=== PATIENT | female | born 1995 | race Caucasian/White ===

== ENCOUNTER → 2019-06-04 11:58 | Outpatient (BNVA) | payer SELFPAY | PROVIDERS: Visit Provider Nurse Practitioner | DX: N39.0 Urinary tract infection, site not specified (principal); R30.9 Painful micturition, unspecified | CPT/HCPCS: 81003 ==

== ENCOUNTER → 2021-11-22 11:19 | Outpatient (BNVA) | payer OTHER, SELFPAY | PROVIDERS: PCP Family Medicine; Visit Provider Emergency Medicine | DX: M79.644 Pain in right finger(s) (principal); M79.89 Other specified soft tissue disorders | CPT/HCPCS: 73140 ==

== ENCOUNTER → 2022-02-08 14:25 | Outpatient (BNVA) | payer OTHER, SELFPAY | PROVIDERS: PCP Family Medicine; Visit Provider Emergency Medicine | DX: R39.9 Unspecified symptoms and signs involving the genitourinary system (principal); R30.0 Dysuria; N39.0 Urinary tract infection, site not specified; R31.9 Hematuria, unspecified | CPT/HCPCS: 81000; 87086 ==

== ENCOUNTER → 2022-03-22 10:25 | Outpatient (BNVA) | payer OTHER, SELFPAY | PROVIDERS: PCP Family Medicine; Visit Provider Obstetrics & Gynecology | DX: Z36.87 Encounter for antenatal screening for uncertain dates (principal) | CPT/HCPCS: 76817 ==

== ENCOUNTER → 2022-03-27 10:21 | Outpatient (BNVA) | payer OTHER, SELFPAY | PROVIDERS: PCP Family Medicine; Visit Provider Obstetrics & Gynecology | DX: Z34.90 Encounter for supervision of normal pregnancy, unspecified, unspecified trimester (principal) | CPT/HCPCS: 80307; 84315; 85025; 86762; 86803; 86850; 86900; 87086; 87340 ==

== ENCOUNTER → 2022-04-09 10:10 | Outpatient (BNVA) | payer OTHER, SELFPAY | PROVIDERS: PCP Family Medicine; Visit Provider Obstetrics & Gynecology | DX: O09.91 Supervision of high risk pregnancy, unspecified, first trimester; Z3A.00 Weeks of gestation of pregnancy not specified; Z87.59 Personal history of other complications of pregnancy, childbirth and the puerperium | CPT/HCPCS: 84315; 86592; 87491; 87591 ==

== ENCOUNTER → 2022-06-08 10:30 | Outpatient (BNVA) | payer OTHER, SELFPAY | PROVIDERS: PCP Family Medicine; Visit Provider Obstetrics & Gynecology | DX: Z36.89 Encounter for other specified antenatal screening (principal) | CPT/HCPCS: 76805 ==

== ENCOUNTER → 2022-07-10 11:25 | Outpatient (BNVA) | payer OTHER, SELFPAY | PROVIDERS: PCP Family Medicine; Visit Provider Nurse Practitioner Women's Health | DX: O09.899 Supervision of other high risk pregnancies, unspecified trimester (principal); Z3A.00 Weeks of gestation of pregnancy not specified | CPT/HCPCS: 82950; 84315 ==

== ENCOUNTER → 2022-07-31 12:00 | Outpatient (BNVA) | payer OTHER, SELFPAY | PROVIDERS: PCP Family Medicine; Visit Provider Nurse Practitioner Women's Health | DX: O09.899 Supervision of other high risk pregnancies, unspecified trimester (principal); O36.8390 Maternal care for abnormalities of the fetal heart rate or rhythm, unspecified trimester, not applicable or unspecified; Z3A.00 Weeks of gestation of pregnancy not specified | CPT/HCPCS: 84315; 84443; 85025 ==

== ENCOUNTER → 2022-09-18 07:51 | Outpatient (BNVA) | payer OTHER, SELFPAY | PROVIDERS: PCP Family Medicine; Visit Provider Obstetrics & Gynecology | DX: O09.899 Supervision of other high risk pregnancies, unspecified trimester (principal); Z3A.00 Weeks of gestation of pregnancy not specified | CPT/HCPCS: 85025 ==

== ENCOUNTER → 2022-09-24 09:29 | Outpatient (BNVA) | payer OTHER, SELFPAY | PROVIDERS: PCP Family Medicine; Visit Provider Obstetrics & Gynecology | DX: O09.893 Supervision of other high risk pregnancies, third trimester (principal); Z3A.37 37 weeks gestation of pregnancy; Z87.59 Personal history of other complications of pregnancy, childbirth and the puerperium | CPT/HCPCS: 76816; 84315; 87081 ==

== ENCOUNTER → 2022-10-01 10:56 | Outpatient (BNVA) | payer OTHER, SELFPAY | PROVIDERS: PCP Family Medicine; Visit Provider Obstetrics & Gynecology | DX: O09.899 Supervision of other high risk pregnancies, unspecified trimester (principal); Z3A.00 Weeks of gestation of pregnancy not specified | CPT/HCPCS: 81000; 87086 ==

== ENCOUNTER 2022-10-18 07:47 | Inpatient (IN) | payer OTHER, SELFPAY ==
[2022-10-18] VITALS (54 sets, daily range): BP systolic 87–132; BP diastolic 51–83; PULSE 54–108; RESP 14–16; TEMP 35.8–36.7; O2SAT 99–100; BMI 33.3
[2022-10-18] MEDS: lactated ringers 1,000 ML 999 ML IV ×3 (08:43→13:38)
[2022-10-18 09:09] LABS: Basophils % 0.3 %; Eosinophils % 0.4 %; Hematocrit 33.4 % (37.0-47.0); Hemoglobin 10.7 g/dL (11.5-15.3); Lymphocytes # 2.1 10^3/uL (0.8-4.8); Lymphocytes % 21.8 %; Mean Corpuscular Hemoglobin 30.6 pg (28.0-34.0); Mean Corpuscular Volume 95.4 fl (81-99); Mean Platelet Volume 12.2 fL (7.4-10.4); Monocytes # 0.8 10^3/uL (0.2-0.9); Monocytes % 8.9 %; Neutrophils # 6.38 10^3/uL (1.8-7.7); Neutrophils % 67.6 %; Nucleated Red Blood Cells % 0 %; Platelet Count 209 10^3/cmm (130-400); Red Cell Distribution Width 13.5 % (12.1-15.1); White Blood Count 9.4 10^3/uL (4.0-10.0)
--- NOTE | 2022-10-18 10:18 | ANES.PREANE2 ---
Pre-Anesthetic Assessment Height/Weight: Height 1.7 m Weight 96.615 kg Temp Pulse Resp BP Pulse Ox O2 Del Method 96.4 F L 95 16 107/67 100 Room Air 10/18/22 07:36 10/18/22 10:15 10/18/22 08:12 10/18/22 10:15 10/18/22 10:10 10/18/22 08:07 Epidural Familial anesthetic complications: None Was Beta Justin taken within 24 hours: N/A Was Clonidine taken within 24 hours: N/A Last intake: Food Social No alcohol and No tobacco Exam alert, oriented x 3, clear to auscultation bilaterally and regular rate & rhythm Airway Mallampati: Class II Dentition: full Anesthetic Plan ASA status: 2 Anesthesia: Regional (specify below) Risk of > 500 ml blood loss (7ml/kg in children): Yes, adequate IV access and fluids planned Medications/Allergies Allergies Allergy/AdvReac Type Severity Reaction Status Date / Time No Known Allergies Allergy Verified 10/18/22 09:23 Current Medications Generic Name Dose Route Start Last Admin Trade Name Freq PRN Reason Stop Dose Admin Lactated Ringer's 1,000 mls @ 999 mls/hr 10/18/22 08:16 10/18/22 08:43 Lactated Ringers IV 999 mls/hr .Q1H1M PRN Administration See label comments PFSH Anesthesia Medical History No pertinent past medical history neghx:htn,dm,thyroid,dvt/pe PCP: Aram Gibson Surgical History No history of previous surgery Family History Grandmother Clotting disorder maternal Diabetes maternal Hypertension maternal Breast cancer paternal, onset unknown Grandfather Clotting disorder maternal Denies family history of Colon cancer Ovarian cancer Heart disease Hyperlipidemia Anesthesia complication Bleeding disorder Uterine cancer Thyroid condition Stroke Social History Smoking and tobacco status: never smoked Female Reproductive History Date of last menstrual period: 01/13/22 : 4 Data Anesthesia 10/18/22 08:01 Short CBC 10/18/22 Range/Units 08:01 WBC 9.4 (4.0-10.0) 10^3/uL Hgb 10.7 L (11.5-15.3) g/dL Hct 33.4 L (37.0-47.0) % MCV 95.4 (81-99) fl Plt Count 209 (130-400) 10^3/cmm Neut % (Auto) 67.6 % Neut # (Auto) 6.38 (1.8-7.7) 10^3/uL Cardiac Studies: No Data to Display
--- NOTE | 2022-10-18 10:18 | ANES.PROC ---
Anesthesia Procedures Procedure/Date: 10/18/22 Epidural: Time Out Performed: Yes Consents Signed: Procedure Consent Consent: requested by attending/covering physician, from patient, from other, risks and benefits reviewed and patient agrees to proceed Lumbar Level: L3-L4 Epidural position: sitting Epidural procedure: sterile prep of area, 1% lidocaine to numb the area, 18 g needle, negative for paresthesia passed, neg for paresthesia, test dose given, 1.5% xylocaine 1:200k epi (5), 0.2% Ropivacaine bolus ml (5), placed PCEA, no systemic response, sterile dressing applied, L.U.D. no apparent complications and 0.2% Ropiavacaine @ mls/hr (13)
[2022-10-18] MEDS: fluconazole 100 mg Tablet 200 MG PO (10:32)
[2022-10-18] MEDS: dextrose 5%-lactated ringers 1,000 ML 125 ML IV (13:39)
--- NOTE | 2022-10-18 16:45 | PM.OPHPUD ---
Labor & Delivery H&P Update Date of Procedure: October 18, 2022 Date H&P Performed: 10/15/22 H&P update information: I have reviewed H&P completed within last 30 days, I have examined patient prior to procedure and Changes to prior documentation as noted here Changes to previous documentation: The patient is being admitted for induction at term. She had 1 cm dilation in the office on 10/15. She is now 580/-2. She has been having painful contractions since 2300 hours last night. Admission Diagnosis: @ 39w5d. History of shoulder dystocia, prior with IUGR, intracardiac focus of fetus Related Problem List Diagnoses (1) Echogenic intracardiac focus of fetus on ultrasound: (2) Supervision of other high-risk : (3) History of prior with IUGR : (4) History of shoulder dystocia in prior :
--- NOTE | 2022-10-18 16:52 | PM.DELIVERY ---
Delivery Note: Date of delivery: October 18, 2022 Pre-delivery diagnoses: iup@ 39 weeks, 5 days, intracardiac focus of fetus, prior with IUGR, history of shoulder dystocia Post-delivery diagnoses: same-delivered Procedure: Delivering Physician: yarely Estimated blood loss (mL): 20 Pre-Delivery Course: The patient was admitted in active labor. She had natural labor until her AROM was performed at 7 cm. Her cervix progressed to complete cervical dilation. Delivery: The patient had complete cervical dilation and began to push. The head delivered in the DEBBIE position over an intact perineum under epidural anesthesia. The nose and mouth were bulb suctioned. The shoulders and body delivered atraumatically. The baby was placed onto the mother's abdomen. The cord was clamped and cut. Cord blood was obtained. The placenta delivered spontaneously. It was inspected and found to be intact. Inspection of the perineum revealed there were no lacerations and no repair was required. Estimated blood loss 20 mL. Apgars on baby were 9 at 1 minute and 9 at 5 minutes. Weight of baby is 9 pounds 9 ounces. Mother and baby were stable post delivery. History History History 4 Term 2 0 Miscarriages/Ectopic 1 Living Children 2 Coding Level of Care Code Acute Code for Chg Fwd Diagnoses
[2022-10-19 02:27] VITALS: BP 98/59; PULSE 69; RESP 15; TEMP 36.5; O2SAT 99
[2022-10-19 03:24] VITALS: BP 105/69; PULSE 70; RESP 17; TEMP 36.8
[2022-10-19 03:31] LABS: Hematocrit 30.7 % (37.0-47.0); Hemoglobin 9.8 g/dL (11.5-15.3); Mean Corpuscular HGB Conc 31.9 g/dL (30.0-36.0); Mean Corpuscular Hemoglobin 30.6 pg (28.0-34.0); Mean Corpuscular Volume 95.9 fl (81-99); Mean Platelet Volume 11.6 fL (7.4-10.4); Platelet Count 184 10^3/cmm (130-400); Red Cell Distribution Width 13.4 % (12.1-15.1); White Blood Count 10.3 10^3/uL (4.0-10.0)
[2022-10-19] MEDS: ibuprofen 800 mg tablet PO ×2 (08:52→15:50)
[2022-10-19] MEDS: prenatal vitamin Capsule 1 CAP PO (08:52)
[2022-10-19] MEDS: docusate sodium 100 mg Capsule PO (08:53)
[2022-10-19] MEDS: fluconazole 100 mg Tablet 200 MG PO (10:30)
[2022-10-19 10:42] VITALS: BP 123/82; PULSE 75; RESP 15; TEMP 36.6
--- NOTE | 2022-10-19 16:14 | P.DS_ITS ---
Discharge Providers Date of Admission: 10/18/22 07:47 Date of Discharge: October 19, 2022 Attending Provider at Admission: Shell Monroy MD Attending Provider at Discharge: Shell Monroy MD Primary Care Provider: Harry Gibson Diagnoses at Discharge Discharge Diagnosis (1) Echogenic intracardiac focus of fetus on ultrasound: Status: Acute (2) Supervision of other high-risk : Status: Acute (3) History of prior with IUGR : Status: Acute (4) History of shoulder dystocia in prior : Status: Acute Reason for Visit Reason for Visit: IOL Hospital Course Hospital Course The patient was admitted for induction of labor at term. She had spontaneous delivery of a term . She did well and requested discharge on day #1 Physical Exam Narrative: The patient is doing well. No concerns. Normal lochia. Pain is well controlled. Const: COMMON NORMALS: no acute distress, patient oriented x3, no limitations, healthy appearing, alert and well nourished Resp: COMMON NORMALS: normal respiratory effort EFFORT & INSPECTION: Yes able to speak in complete sentences GI: COMMON NORMALS: Soft to palpation and non-tender PALPATION: Yes Soft to palpation Extremity: COMMON NORMALS: no calf tenderness Neuro: COMMON NORMALS: patient oriented x3 SENSORIUM/ORIENTATION: Yes alert Psych: COMMON NORMALS: mental status grossly normal, Normal thought process present, cooperative, normal affect and speech normal SPEECH: Yes normal speech THOUGHT PROCESS: Normal thought process present Urinary Catheter Management: Henderson: Cath Placed During This Visit: yes, but has since been removed by the nurse Reason for Continuing Indwelling Catheter: Decision to DC Catheter Urinary Catheter Date of Insertion: 10/18/22 Urinary Catheter Time of Insertion: 12:05 Date Urinary Catheter Removed: 10/18/22 Time Urinary Catheter Discontinued: 15:03 Discharge Data Studies Completed and Pending Laboratory Results WBC 10.3 10^3/uL (4.0-10.0) H 10/19/22 03:20 RBC 3.20 10^6/uL (4.1-5.3) L 10/19/22 03:20 Hgb 9.8 g/dL (11.5-15.3) L 10/19/22 03:20 Hct 30.7 % (37.0-47.0) L 10/19/22 03:20 MCV 95.9 fl (81-99) 10/19/22 03:20 MCH 30.6 pg (28.0-34.0) 10/19/22 03:20 MCHC 31.9 g/dL (30.0-36.0) 10/19/22 03:20 RDW 13.4 % (12.1-15.1) 10/19/22 03:20 Plt Count 184 10^3/cmm (130-400) 10/19/22 03:20 MPV 11.6 fL (7.4-10.4) H 10/19/22 03:20 Neut % (Auto) 67.6 % 10/18/22 08:01 Lymph % (Auto) 21.8 % 10/18/22 08:01 Desha % (Auto) 8.9 % 10/18/22 08:01 Eos % (Auto) 0.4 % 10/18/22 08:01 Baso % (Auto) 0.3 % 10/18/22 08:01 Neut # (Auto) 6.38 10^3/uL (1.8-7.7) 10/18/22 08:01 Lymph # (Auto) 2.1 10^3/uL (0.8-4.8) 10/18/22 08:01 Desha # (Auto) 0.8 10^3/uL (0.2-0.9) 10/18/22 08:01 Eos # (Auto) 0.0 10^3/uL (0.0-0.8) 10/18/22 08:01 Baso # (Auto) 0.0 10^3/uL (0.0-0.1) 10/18/22 08:01 Nucleated RBC % (auto) 0 % 10/18/22 08:01 Nucleated RBCs # 0.0 /100WBC 10/18/22 08:01 Vitals Last Vital Signs Temp 97.9 F 10/19/22 10:42 Pulse 75 10/19/22 10:42 Resp 15 10/19/22 10:42 BP 123/82 10/19/22 10:42 Pulse Ox 99 10/19/22 02:27 O2 Del Method Room Air 10/19/22 10:42 Discharge Plan Discharge Patient Disposition: Home Condition: Stable Discharge Orders: Discharge Order (Routine); Ordered 10/19/22 Ordered By: Shell Monroy Referrals: Shell Monroy MD [Physician] - (Your 2 week visit is scheduled for November 01 @ 1:15pm Your 6 week visit is scheduled for November 26 @ 1:30pm ) Patient Instructions: Depression (DC), Bleeding (DC), Preeclampsia and Eclampsia After Delivery (GEN), Hemorrhage (DC), OB Discharge Report, OB Food/Drug Interaction Guide, Opioid Safety, OB Home Care, OB Vaginal Deliveries - [facility] Discharge Attestations Time Spent in Discharge Care*: less than 30 min Quality Metrics Clinical Quality Measures [ No reported AMI, CVA or VTE this stay] Coding Level of Care Code Acute Code for Chg Fwd Diagnoses Echogenic intracardiac focus of fetus on ultrasound O28.3 Supervision of other high-risk O09.899 History of prior with IUGR Z87.59 History of shoulder dystocia in prior Z87.59
[2022-10-19 18:00] VITALS: BP 119/76; PULSE 71; TEMP 36.6; O2SAT 98
--- NOTE | 2022-10-20 10:03 | ANE.PACU2 ---
Inpatient post-anesthesia follow up: Airway intact: Yes Vital signs: Temperature 97.8 F Pulse Rate 71 Respiratory Rate 15 Blood Pressure 119/76 Pulse Oximetry 98 Oxygen Delivery Me thod Room Air Oxygen Flow Rate Fraction of Inspir ed Oxygen Hydration adequate: Yes Nausea and vomiting: No Pain level: 1 Mental status: Baseline
== END 2022-10-19 18:10 | disposition home or self-care (01) | DRG 807 ==
LOC: OPOB 07:48 → OBGYN 07:54
PROVIDERS: Admitting Provider Obstetrics & Gynecology; PCP Family Medicine; Visit Provider Obstetrics & Gynecology
DX: O28.3 Abnormal ultrasonic finding on antenatal screening of mother (principal); Z37.0 Single live birth; Z87.59 Personal history of other complications of pregnancy, childbirth and the puerperium; Z3A.39 39 weeks gestation of pregnancy
CPT/HCPCS: 36415; 51702; 59025; 59409; 85025; 85027; 99211; J2795; J7120; J7121

== ENCOUNTER 2022-10-28 15:20 | Emergency (ER) | payer OTHER, SELFPAY ==
[2022-10-28 16:11] VITALS: BP 115/73; PULSE 89; RESP 12; TEMP 36.4; O2SAT 99; BMI 30.2
--- NOTE | 2022-10-28 17:37 | W.ED.FEMALGU ---
HPI - Female Genitourinary General: Chief complaint: Urogenital-Female Stated complaint: possible vaginal prolapse Time Seen by Provider: 10/28/22 17:35 History of Present Illness: 27-year-old female comes in today with episode of prolapse seen pelvic organs. Patient reports that she delivered on 18 October and has been having an uneventful recovery when 2 days ago she sneezed and felt prolapsing of a pelvic organ. Patient reports that she notices with urination some burning and some shrinkage of the organ. Patient reports that she noticed a similar incident with her second and delivery but seem to resolve on its own. Patient has had a total of 4 pregnancies, 3 live births, and 1 miscarriage. Patient denies any other chronic medical problems. Patient reports slight to no bleeding. Patient reports that she had a 9 pound baby on the . Associated symptoms: Deny headache(s) or nausea Review of Systems General: Reports: 10 or more systems reviewed and unremarkable except in HPI and below Const: Denies: fever(s) Eyes: Denies: change in vision ENMT: Denies: throat pain Card: Denies: chest pain Resp: Denies: dyspnea GI: Denies: nausea or vomiting : Reports: difficulty voiding and prolapse symptoms Musc: Denies: neck pain or back pain Skin/Breast: Denies: rash Neuro: Denies: headache(s) Mani/Lymph: Denies: easy bruising or easy bleeding PFSH ED PFSH: Medical History No pertinent past medical history neghx:htn,dm,thyroid,dvt/pe PCP: Aram Gibson Surgical History No history of previous surgery Family History Grandmother Clotting disorder maternal Diabetes maternal Hypertension maternal Breast cancer paternal, onset unknown Grandfather Clotting disorder maternal Denies family history of Colon cancer Ovarian cancer Heart disease Hyperlipidemia Anesthesia complication Bleeding disorder Uterine cancer Thyroid condition Stroke Social History Smoking and tobacco status: never smoked Physical Exam Const: COMMON NORMALS: alert HENMT: COMMON NORMALS: normocephalic HEAD & SCALP: normocephalic Resp: COMMON NORMALS: normal respiratory effort and clear to auscultation bilaterally AUSCULTATION: clear to auscultation bilaterally Cardio: COMMON NORMALS: regular rate and regular rhythm RATE: regular rate RHYTHM: regular rhythm GI: INSPECTION: Yes normal to inspection : COMMON NORMALS: Yes no CVA tenderness BLADDER/KIDNEY EXAM: Yes no CVA tenderness OTHER: Urethra noted some swelling and redness at around the 5 o'clock position. Bimanual exam did not palpate uterus or other significant abnormality. Urethra was very tender during exam and was unable to complete speculum exam. Back/Pelvis: COMMON NORMALS: no CVA tenderness Extremity: COMMON NORMALS: full ROM Neuro: SENSORIUM/ORIENTATION: Yes alert Skin: COMMON NORMALS: turgor normal GENERAL SKIN EXAM: turgor normal Course Vital Signs: Vital signs: Vital Signs Temperature 97.6 F 10/28/22 16:11 Pulse Rate 89 10/28/22 16:11 Respiratory Rate 12 10/28/22 16:11 Blood Pressure 115/73 10/28/22 16:11 Pulse Oximetry 99 10/28/22 16:11 Oxygen Delivery Me thod Room Air 10/28/22 16:11 [facility] - Female Medical Decision Making Patient comes in today for complaints of prolapse pelvic organ. Patient states 3 days ago she sneezed and felt a protrusion from her vagina. On exam no significant abnormalities were noted. Patient did have an enlarged urethra with some bulging at the 5 o'clock position of the urethra. Bimanual exam did not palpate prolapsed uterus or significant abnormality in the bladder. Differential diagnosis includes but not limited to cystocele, urethrocele, uterine prolapse, rectocele, urethritis. Urinalysis had some white blood cells and some hyaline casts. Encourage patient drink plenty of water and fluids. We will go ahead and treat with some cephalexin for a secondary infection. Believe the patient probably has a urethrocele with a possible cystocele. No signs of uterine prolapse is noted. Recommend patient follow-up with her ENVIRONMENTAL ADVISOR for further evaluation and consideration of other diagnoses. Patient reported understanding agreed to plan. Lab Data Laboratory Results Urine Color Yellow (Yellow) 10/28/22 17:48 Urine Appearance Hazy (CLEAR) A 10/28/22 17:48 Urine pH 5 (5-7) 10/28/22 17:48 Ur Specific [place] 1.015 (1.005-1.030) 10/28/22 17:48 Urine Protein Neg (Negative) 10/28/22 17:48 Urine Glucose (UA) Norm (Normal) 10/28/22 17:48 Urine Ketones Negative (Negative) 10/28/22 17:48 Urine Blood 3+ (Negative) H 10/28/22 17:48 Urine Nitrate Negative (Negative) 10/28/22 17:48 Urine Bilirubin Neg (Negative) 10/28/22 17:48 Urine Urobilinogen Norm mg/dL (Negative) 10/28/22 17:48 Ur Leukocyte Esterase 2+ (Negative) H 10/28/22 17:48 Urine RBC 5-10 /hpf (0-2) H 10/28/22 17:48 Urine WBC 5-10 /hpf (0-5) H 10/28/22 17:48 Ur Squamous Epith Cells 0-4 /hpf (0-5) H 10/28/22 17:48 Amorphous Sediment Not Reportable 10/28/22 17:48 Urine Bacteria 2+ /hpf (NONE) H 10/28/22 17:48 Hyaline Casts 10-15 /lpf H 10/28/22 17:48 Discharge Plan Discharge Patient Disposition: Home Clinical Impression: Female urethrocele Condition: Stable Prescriptions: New cephalexin 500 mg capsule 500 mg PO BID 7 Days Qty: 14 0RF Discharge Orders: Discharge ED (Routine); Ordered 10/28/22 Ordered By: Jaime Shukla Referrals: Harry Gibson [Primary Care Provider] - Shell Monroy MD [Physician] - (Call to make appointment) Discharge Diet: Usual diet Discharge Activity: Increase activity as tolerated Patient Instructions: Cystocele (ED) Activity Restrictions/Additional Instructions: Follow-up with Dr. Monroy for further evaluation and treatment. At this time he looks to have a urethral cell which is a mild prolapse of the urethra but may also include a cystocele which is prolapse of the bladder. Drink plenty of water. Follow-up with ENVIRONMENTAL ADVISOR in the morning. Return to ER for new concerns. Take antibiotics as directed. Coding Level of Care Code ED Coin Box Inspector for Shawn Parkinson
[2022-10-28 18:35] LABS: Bilirubin Urine Neg (Negative); Blood Urine 3+ (Negative); Glucose Urine UA Norm (Normal); Ketones Urine Negative (Negative); Leukocyte Esterase Urine 2+ (Negative); Nitrate Urine Negative (Negative); Protein Urine Neg (Negative); Specific Gravity, Urine 1.015 (1.005-1.030); Urine Appearance Hazy (CLEAR); Urine Color Yellow (Yellow); Urobilinogen Urine Norm (Negative); pH Urine 5 (5-7)
[2022-10-28 18:36] LABS: Add Urine Microscopic? YES
[2022-10-28 18:40] LABS: Add Urine Culture? Yes; Bacteria Urine 2+ /hpf; Squamous Epithelial Cell Urine 0-4 /hpf (0-5)
[2022-10-28] MEDS: cephALEXin 500 mg Capsule PO (18:52)
--- NOTE | 2022-10-29 08:26 | DCPLANNER ---
Addendum entered by Keisha Merino 11/01/22 13:47: Patient had a follow up appointment scheduled at [facility] for 11.01.22 - patient did attend appointment. Original Note: manager asset had message to schedule a follow up appointment for patient with [facility]ER. manager asset sent patients information to the front office staff at [facility]. Patients information will be printed and reviewed. Clinic will call patient with appointment information.
== END 2022-10-28 18:52 | disposition home or self-care (01) ==
PROVIDERS: Emergency Provider Nurse Practitioner Family; PCP Family Medicine
DX: N81.0 Urethrocele (principal)
CPT/HCPCS: 81001; 87086; 99283

== ENCOUNTER → 2023-12-19 12:58 | Outpatient (BNVA) | payer OTHER, SELFPAY | PROVIDERS: PCP Family Medicine; Visit Provider Registered Nurse Neonatal Intensive Care | DX: N39.0 Urinary tract infection, site not specified (principal) | CPT/HCPCS: 81000; 87086 ==

== ENCOUNTER 2023-12-25 14:10 | Emergency (ER) | payer OTHER, SELFPAY ==
[2023-12-25 14:22] VITALS: BP 116/79; PULSE 70; RESP 18; TEMP 36.6; O2SAT 98
--- NOTE | 2023-12-25 14:34 | CTR_ITS ---
PROCEDURE INFORMATION: Exam: CT Abdomen And Pelvis With Contrast Exam date and time: 12/25/2023 4:02 PM Age: 28 years old Clinical indication: Abdominal pain; Flank; Other: Bilateral; Additional info: Abd pain TECHNIQUE: Imaging protocol: Computed tomography of the abdomen and pelvis with contrast. Radiation optimization: All CT scans at this facility use at least one of these dose optimization techniques: automated exposure control; mA and/or kV adjustment per patient size (includes targeted exams where dose is matched to clinical indication); or iterative reconstruction. Contrast material: OMNI 350; Contrast volume: 100 ml; Contrast route: INTRAVENOUS (IV); COMPARISON: [place] [id number] 09/24/2022 9:30 AM RADIATION DOSE METRICS: Total DLP (mGy-cm): 720 FINDINGS: Lungs: Lung bases are clear. No pleural effusion. Liver: Normal. No mass. Gallbladder and biliary ducts: Normal. No calcified stones. No ductal dilation. Pancreas: Normal. No ductal dilation. Spleen: Normal. No splenomegaly. Adrenal glands: Normal. No mass. Kidneys and ureters: Normal. No hydronephrosis. Stomach and bowel: Unremarkable. No obstruction. No mucosal thickening. Appendix: No evidence of appendicitis. Intraperitoneal space: Unremarkable. No free air. No significant fluid collection. Vasculature: Unremarkable. No abdominal aortic aneurysm. Lymph nodes: Unremarkable. No enlarged lymph nodes. Urinary bladder: Unremarkable as visualized. Reproductive: Unremarkable as visualized. Bones/joints: Unremarkable. No acute fracture. Soft tissues: Unremarkable. CT/CT abdomen pelvis w con* [id number] IMPRESSION: No acute findings.
--- NOTE | 2023-12-25 14:47 | ED_ITS ---
HPI - Abdominal Pain 2 General: Chief Complaint: Abdominal Pain Stated Complaint: both side back pain, abd pain Time Seen by Provider: 12/25/23 14:13 Source: patient Mode of arrival: ambulatory Limitations: no limitations History of Present Illness: 28-year-old female states she had an abd ominal pain along with bilateral flank pain and nausea for the last 6 days. She was seen in urgent care as she is currently on Macrobid for UTI states she continue have diffuse abdominal pain radiating to her back she rates that pain a 3 out of 10 she denies any vomiting denies any fever denies any dysuria or vaginal bleeding or discharge currently. Associated Symptoms: Reports nausea; Denies chills, diarrhea, fever(s) and vomiting Review of Systems 2 Const: Denies: fever(s), chills, body aches or change in appetite ENMT: Denies: throat pain or dental pain Card: Denies: chest pain Resp: Denies: dyspnea GI: Reports: abdominal pain and nausea; Denies: vomiting or diarrhea : Reports: flank pain Musc: Denies: neck pain or back pain Skin/Breast: Denies: rash Neuro: Denies: headache(s) PFSH ED 2 PFSH: Medical History Echogenic intracardiac focus of fetus on ultrasound No pertinent past medical history neghx:htn,dm,thyroid,dvt/pe PCP: Aram Gibson History of prior with IUGR History of shoulder dystocia in prior Surgical History No history of previous surgery Family History Grandmother Clotting disorder maternal Diabetes maternal Hypertension maternal Breast cancer paternal, onset unknown Grandfather Clotting disorder maternal Denies family history of Colon cancer Ovarian cancer Heart disease Hyperlipidemia Anesthesia complication Bleeding disorder Uterine cancer Thyroid disease Stroke Social History Smoking and tobacco/nicotine status: unknown if used tobacco/nicotine Physical Exam 2 Const: COMMON NORMALS: no acute distress, patient oriented x3 and healthy appearing HENMT: COMMON NORMALS: normocephalic and atraumatic HEAD & SCALP: n ormocephalic and atraumatic Eye: COMMON NORMALS: conjunctivae normal CONJUNCTIVA: Yes conjunctivae normal Neck/C-Spine: COMMON NORMALS: full ROM and supple Chest: COMMONS NORMALS: normal inspection of the chest and normal palpation of entire chest wall Resp: COMMON NORMALS: normal respiratory effort, No retractions, No use of accessory muscles and clear to auscultation bilaterally AUSCULTATION: clear to auscultation bilaterally Cardio: COMMON NORMALS: regular rate, regular rhythm and No murmurs present (Cardio) RATE: regular rate RHYTHM: regular rhythm GI: COMMON NORMALS: Normal to inspection, nondistended, normoactive bowel sounds present, Soft to palpation, non-tender and no masses PALPATION: Yes Soft to palpation Extremity: COMMON NORMALS: normal to inspection and full ROM Neuro: COMMON NORMALS: patient oriented x3, moves all extremities and no focal motor deficits Psych: COMMON NORMALS: mental status grossly normal, Normal thought process present and cooperative THOUGHT PROCESS: Normal thought process present Skin: COMMON NORMALS: no rashes or lesions noted and no wounds GENERAL SKIN EXAM: no rashes or lesions noted Course 2 Vital Signs: Vital signs: Vital Signs Temperature 97.8 F 12/25/23 14:22 Pulse Rate 70 12/25/23 14:22 Respiratory Rate 18 12/25/23 14:22 Blood Pressure 93/67 12/25/23 15:24 Pulse Oximetry 99 12/25/23 15:24 Oxygen Delivery Me thod Room Air 12/25/23 15:24 MDM - Abdominal Pain Medical Decision Making Patient presents with abdominal pain blood work CT scan here is normal exam at discharge benign she stable for discharge she is follow-up with PCP and return if worsening she understands agrees to plan. Medical Records I reviewed the patient's medical records. Lab Data I reviewed the patient's lab results. 12/25/23 14:41 12/25/23 14:41 Labs/Radiology: Radiology Impressions Abdomen/Pelvis CT 12/25/23 14:34 IMPRESSION: No acute findings. Laboratory Results WBC 5.59 10^3/uL (3.29-11.43) 12/25/23 14:41 RBC 4.46 10^6/uL (3.85-5.65) 12/25/23 14:41 Hgb 13.40 g/dL (11.27-16.99) 12/25/23 14:41 Hct 40.7 % (36-47) 12/25/23 14:41 MCV 91.3 fl (85-98) 12/25/23 14:41 MCH 30.0 pg (27-33) 12/25/23 14:41 MCHC 32.9 g/dL (30-55) 12/25/23 14:41 RDW 14.5 % (12.1-15.1) 12/25/23 14:41 Plt Count 220 10^3/cmm (157-399) 12/25/23 14:41 MPV 10.5 fL (7.4-10.4) H 12/25/23 14:41 Neut % (Auto) 63.8 % 12/25/23 14:41 Lymph % (Auto) 28.6 % 12/25/23 14:41 [place] % (Auto) 6.1 % 12/25/23 14:41 Eos % (Auto) 0.7 % 12/25/23 14:41 Baso % (Auto) 0.4 % 12/25/23 14:41 Neut # (Auto) 3.57 10^3/uL (1.8-7.7) 12/25/23 14:41 Lymph # (Auto) 1.6 10^3/uL (0.8-4.8) 12/25/23 14:41 [place] # (Auto) 0.3 10^3/uL (0.2-0.9) 12/25/23 14:41 Eos # (Auto) 0.0 10^3/uL (0.0-0.8) 12/25/23 14:41 Baso # (Auto) 0.0 10^3/uL (0.0-0.1) 12/25/23 14:41 Nucleated RBC % (auto) 0 % 12/25/23 14:41 Nucleated RBCs # 0.0 /100WBC 12/25/23 14:41 Sodium 140 mmol/L (136-145) 12/25/23 14:41 Potassium 4.2 mmol/L (3.5-5.1) 12/25/23 14:41 Chloride 104 mmol/L (98-107) 12/25/23 14:41 Carbon Dioxide 25 mmol/L (22-29) 12/25/23 14:41 Anion Gap 15.2 (5-19) 12/25/23 14:41 BUN 13 mg/dL (6-20) 12/25/23 14:41 Creatinine 0.7 mg/dL (0.5-0.9) 12/25/23 14:41 GFR Calculation 101.1 mL/min (90-130) 12/25/23 14:41 Glucose 93 mg/dL (65-115) 12/25/23 14:41 Calculated Osmolality 290 mOsm/kg (285-295) 12/25/23 14:41 Calcium 9.2 mg/dL (8.5-10.5) 12/25/23 14:41 Total Bilirubin 0.5 mg/dL (0.15-1.2) 12/25/23 14:41 AST 38 U/L (0-32) H 12/25/23 14:41 ALT 61 U/L (0-33) H 12/25/23 14:41 Alkaline Phosphatase 111 U/L (35-105) H 12/25/23 14:41 Total Protein 7.2 g/dL (6.6-8.7) 12/25/23 14:41 Albumin 4.3 g/dL (3.5-5.2) 12/25/23 14:41 Globulin 2.9 g/dL (1.3-4.6) 12/25/23 14:41 Lipase 32 U/L (13-60) 12/25/23 14:41 HCG, Qual Negative (Negative) 12/25/23 14:41 Urine Color Yellow (Yellow) 12/25/23 14:38 Urine Appearance Slightly cloudy (CLEAR) 12/25/23 14:38 Urine pH 7 (5-7) 12/25/23 14:38 Ur Specific [place] 1.015 (1.005-1.030) 12/25/23 14:38 Urine Protein Trace (Negative) 12/25/23 14:38 Urine Glucose (UA) Norm (Normal) 12/25/23 14:38 Urine Ketones Negative (Negative) 12/25/23 14:38 Urine Blood 3+ (Negative) H 12/25/23 14:38 Urine Nitrate Negative (Negative) 12/25/23 14:38 Urine Bilirubin Neg (Negative) 12/25/23 14:38 Urine Urobilinogen Norm mg/dL (Negative) 12/25/23 14:38 Ur Leukocyte Esterase 2+ (Negative) H 12/25/23 14:38 Urine RBC 40-50 /hpf (0-2) H 12/25/23 14:38 Urine WBC 5-10 /hpf (0-5) H 12/25/23 14:38 Ur Squamous Epith Cells 5-10 /hpf (0-5) H 12/25/23 14:38 Amorphous Sediment Not Reportable 12/25/23 14:38 Urine Bacteria Trace /hpf (NONE) 12/25/23 14:38 Urine Mucus Trace /hpf 12/25/23 14:38 All radiology interpretation(s) finalized by discharge Discharge Plan Discharge Patient Disposition: Home Clinical Impression: Abdominal pain Condition: Stable Prescriptions: New ondansetron 4 mg tablet,disintegrating 4 mg PO Q6H PRN (Reason: nausea and vomiting) Qty: 14 0RF naproxen [Naprosyn] 500 mg tablet 500 mg PO BID PRN (Reason: pain) Qty: 20 0RF No Action nitrofurantoin monohyd/m-cryst [Macrobid] 100 mg capsule 100 mg PO BID 5 Days Qty: 10 0RF Rx Instructions: must administer with a meal/food amoxicillin 875 mg tablet 875 mg PO BID 7 Days Qty: 14 0RF Discharge Orders: Discharge ED (Routine); Ordered 12/25/23 Ordered By: Nishi Francois Discharge Diet: Advance as tolerated Discharge Activity: Resume usual activity Patient Instructions: Abdominal Pain (ED) Coding Level of Care Code ED Shipping Receiving Clerk for Shawn Parkinson
[2023-12-25 15:10] LABS: Basophils % 0.4 %; Eosinophils % 0.7 %; Hematocrit 40.7 % (36-47); Lymphocytes # 1.6 10^3/uL (0.8-4.8); Lymphocytes % 28.6 %; Mean Corpuscular HGB Conc 32.9 g/dL (30-55); Mean Corpuscular Volume 91.3 fl (85-98); Mean Platelet Volume 10.5 fL (7.4-10.4); Monocytes # 0.3 10^3/uL (0.2-0.9); Monocytes % 6.1 %; Neutrophils # 3.57 10^3/uL (1.8-7.7); Neutrophils % 63.8 %; Nucleated Red Blood Cells % 0 %; Platelet Count 220 10^3/cmm (157-399); Red Blood Count 4.46 10^6/uL (3.85-5.65); Red Cell Distribution Width 14.5 % (12.1-15.1); White Blood Count 5.59 10^3/uL (3.29-11.43)
[2023-12-25 15:13] LABS: Alanine Aminotransferase 61 U/L (0-33); Albumin Level 4.3 g/dL (3.5-5.2); Alkaline Phosphatase 111 U/L (35-105); Anion Gap 15.2 (5-19); Aspartate Amino Transferase 38 U/L (0-32); Blood Urea Nitrogen 13 mg/dL (6-20); Calcium 9.2 mg/dL (8.5-10.5); Carbon Dioxide 25 mmol/L (22-29); Chloride 104 mmol/L (98-107); Creatinine Clr Calc Pharmacy 136.9897; Globulin 2.9 g/dL (1.3-4.6); Glomerular Filtration Rate 101.1 mL/min (90-130); Glucose 93 mg/dL (65-115); Lipase 32 U/L (13-60); Osmolality Calculated 290 mOsm/kg (285-295); Potassium 4.2 mmol/L (3.5-5.1); Sodium 140 mmol/L (136-145); Total Bilirubin 0.5 mg/dL (0.15-1.2); Total Protein 7.2 g/dL (6.6-8.7)
[2023-12-25 15:24] VITALS: BP 93/67; O2SAT 99
[2023-12-25] MEDS: sodium chloride 0.9% 1,000 ML 999 ML IV (15:30)
[2023-12-25 15:37] LABS: HCG, Serum Qual Negative (Negative)
[2023-12-25 15:51] LABS: Add Urine Microscopic? YES; Bilirubin Urine Neg (Negative); Blood Urine 3+ (Negative); Glucose Urine UA Norm (Normal); Ketones Urine Negative (Negative); Leukocyte Esterase Urine 2+ (Negative); Nitrate Urine Negative (Negative); Protein Urine Trace (Negative); Specific Gravity, Urine 1.015 (1.005-1.030); Urine Appearance Slightly Cloudy (CLEAR); Urine Color Yellow (Yellow); Urobilinogen Urine Norm (Negative); pH Urine 7 (5-7)
[2023-12-25 15:52] LABS: Add Urine Culture? Yes; Bacteria Urine TRACE /hpf; Mucus Urine TRACE /hpf; RBC Urine 40-50 /hpf (0-2)
[2023-12-25] MEDS: iohexol 350 mg/mL 500 mL Btl (per mL) IV (16:05)
[2023-12-25 16:59] VITALS: BP 104/74; PULSE 51; O2SAT 100
[2023-12-25 17:00] VITALS: PULSE 68
--- NOTE | 2023-12-25 17:10 | PC.NURSE ---
manually palpated R radial pulse over 60 seconds, pulse of 62 BPM noted.
[2023-12-25 17:11] VITALS: BP 105/75; PULSE 62; O2SAT 100
== END 2023-12-25 17:13 | disposition home or self-care (01) ==
PROVIDERS: Emergency Provider Emergency Medicine
DX: R10.9 Unspecified abdominal pain (principal)
CPT/HCPCS: 36415; 74177; 80053; 81001; 83690; 84703; 85025; 87086; 99285; J7030; Q9967

== ENCOUNTER 2024-01-03 02:45 | Emergency (ER) | payer OTHER, SELFPAY ==
[2024-01-03 02:53] VITALS: BP 112/77; PULSE 53; RESP 18; TEMP 36.6; O2SAT 100; BMI 28.8
[2024-01-03 02:59] VITALS: BP 108/81; PULSE 57; RESP 14; O2SAT 100
--- NOTE | 2024-01-03 03:16 | W.ED.ABDPA2 ---
HPI - Abdominal Pain General: Chief Complaint: Abdominal Pain Stated Complaint: Abd pain Time Seen by Provider: 01/03/24 02:54 History of Present Illness: 28-year-old female presents with abdominal pain. His right upper quadrant abdominal pain that radiates across to her midsection Around. She reports she had similar pain couple weeks ago. And had a negative evaluation. She reports that it improved and then worsened just tonight prior to arrival. Associated Symptoms: Denies chills and fever(s) Review of Systems Const: Denies: fever(s) or chills Card: Denies: chest pain or palpitations Resp: Denies: dyspnea or productive cough GI: Reports: abdominal pain Musc: Reports: neck pain and back pain Neuro: Denies: headache(s) PFSH ED PFSH: Medical History Echogenic intracardiac focus of fetus on ultrasound No pertinent past medical history neghx:htn,dm,thyroid,dvt/pe PCP: Aram Gibson History of prior with IUGR History of shoulder dystocia in prior Surgical History No history of previous surgery Family History Grandmother Clotting disorder maternal Diabetes maternal Hypertension maternal Breast cancer paternal, onset unknown Grandfather Clotting disorder maternal Denies family history of Colon cancer Ovarian cancer Heart disease Hyperlipidemia Anesthesia complication Bleeding disorder Uterine cancer Thyroid disease Stroke Social History Smoking and tobacco/nicotine status: unknown if used tobacco/nicotine Physical Exam Const: COMMON NORMALS: no acute distress, patient oriented x3, alert and well nourished Resp: COMMON NORMALS: normal respiratory effort, No use of accessory muscles and clear to auscultation bilaterally AUSCULTATION: clear to auscultation bilaterally Cardio: COMMON NORMALS: regular rate and regular rhythm RATE: regular rate RHYTHM: regular rhythm GI: COMMON NORMALS: Soft to palpation PALPATION: Yes Soft to palpation and No Guarding due to palpation present (GI) Extremity: COMMON NORMALS: normal to inspection, full ROM and capillary refill normal Neuro: COMMON NORMALS: patient oriented x3 and moves all extremities SENSORIUM/ORIENTATION: Yes alert Psych: COMMON NORMALS: mental status grossly normal, Normal thought process present and speech normal SPEECH: Yes normal speech THOUGHT PROCESS: Normal thought process present Course Vital Signs: Vital signs: Vital Signs Temperature 98 F 01/03/24 02:53 Pulse Rate 53 L 01/03/24 02:53 Respiratory Rate 18 01/03/24 02:53 Blood Pressure 112/77 01/03/24 02:53 Pulse Oximetry 100 01/03/24 02:53 MDM - Abdominal Pain Medical Decision Making Patient reports that she vomited started feeling better. Patient decided that she would prefer to leave and will follow-up outpatient. Patient had extensive evaluation on 12/25/[address] scan and labs. I did discuss with her that when she initially came in she may need further studies of her gallbladder to check how it empties. She said that she vomited she would like to just follow-up outpatient with GI specialist and left AGAINST MEDICAL ADVICE. Lab Data Labs/Radiology: Laboratory Results HCG, Qual Negative (Negative) 01/03/24 03:56 Urine Color Yellow (Yellow) 01/03/24 03:56 Urine Appearance Clear (CLEAR) 01/03/24 03:56 Urine pH 7.5 (5-7) 01/03/24 03:56 Ur Specific [place] 1.021 (1.005-1.030) 01/03/24 03:56 Urine Protein Trace (Negative) A 01/03/24 03:56 Urine Glucose (UA) Negative (Normal) 01/03/24 03:56 Urine Ketones Negative (Negative) 01/03/24 03:56 Urine Blood Negative (Negative) 01/03/24 03:56 Urine Nitrate Negative (Negative) 01/03/24 03:56 Urine Bilirubin Negative (Negative) 01/03/24 03:56 Urine Urobilinogen 1.0 mg/dL (Negative) 01/03/24 03:56 Ur Leukocyte Esterase 1+ (Negative) A 01/03/24 03:56 Urine RBC 0-2 /hpf (0-2) 01/03/24 03:56 Urine WBC 11-20 /hpf (0-5) H 01/03/24 03:56 Ur Squamous Epith Cells 6-10 /hpf (0-5) 01/03/24 03:56 Amorphous Sediment Not Reportable 01/03/24 03:56 Urine Bacteria None seen /hpf (NONE) 01/03/24 03:56 Hyaline Casts 0-4 /lpf H 01/03/24 03:56 No radiology studies performed this visit Discharge Plan Discharge Patient Disposition: Left Against Medical Advice Clinical Impression: Abdominal pain Condition: Stable Prescriptions: No Action nitrofurantoin monohyd/m-cryst [Macrobid] 100 mg capsule 100 mg PO BID 5 Days Qty: 10 0RF Rx Instructions: must administer with a meal/food amoxicillin 875 mg tablet 875 mg PO BID 7 Days Qty: 14 0RF ondansetron 4 mg tablet,disintegrating 4 mg PO Q6H PRN (Reason: nausea and vomiting) Qty: 14 0RF Naprosyn 500 mg tablet 500 mg PO BID PRN (Reason: pain) Qty: 20 0RF Patient Instructions: Abdominal Pain (ED) Coding Level of Care Code ED Rim Fire Priming Tool Setter for Shawn Parkinson
[2024-01-03 04:00] LABS: HCG Qualitative Urine. Negative (Negative)
[2024-01-03 04:05] LABS: Charge for UA Resulting for Rev
[2024-01-03 04:08] LABS: Bilirubin Urine Negative (Negative); Blood Urine Negative (Negative); Glucose Urine UA Negative (Normal); Ketones Urine Negative (Negative); Leukocyte Esterase Urine 1+ (Negative); Nitrate Urine Negative (Negative); Protein Urine Trace (Negative); Specific Gravity, Urine 1.021 (1.005-1.030); Urine Appearance Clear (CLEAR); Urine Color Yellow (Yellow); pH Urine 7.5 (5-7)
[2024-01-03 04:13] LABS: Bacteria Urine None Seen /hpf; Hyaline Casts Urine 0-4 /lpf; RBC Urine 0-2 /hpf (0-2)
[2024-01-03 04:16] LABS: Add Urine Culture? No
== END 2024-01-03 04:18 | disposition left against medical advice (07) ==
PROVIDERS: Emergency Provider Student in an Organized Health Care Education/Training Program
DX: R10.11 Right upper quadrant pain (principal); Z53.29 Procedure and treatment not carried out because of patient's decision for other reasons
CPT/HCPCS: 81003; 81015; 81025; 99283

== ENCOUNTER 2024-01-05 22:33 | Emergency (ER) | payer OTHER, SELFPAY ==
[2024-01-05 22:36] VITALS: BP 107/69; PULSE 74; RESP 17; TEMP 36.5; O2SAT 99; BMI 28.8
--- NOTE | 2024-01-05 22:37 | ED_ITS ---
HPI - Abdominal Pain 2 General: Chief Complaint: Abdominal Pain Stated Complaint: Gallbladder problems Time Seen by Provider: 01/05/24 22:35 History of Present Illness: 28-year-old female comes in today for pe rsistent abdominal pain. Patient has been seen in outpatient clinic and in the emergency department for similar type pain. Patient was last seen in the ER on the for similar abdominal pain. Patient reports the pain starts in the epigastric and does go to the back. Patient thinks that she might have gallbladder issues. I reviewed the record and noted the CT scan that was normal without any signs of inflammation or gallstones or any other abnormalities. Laboratory values were unremarkable at that time 2. Patient was then seen yesterday and a urinalysis was performed that was unremarkable. Review of Systems 2 General: Reports: 10 or more systems reviewed and unremarkable except in HPI and below GI: Reports: abdominal pain PFSH ED 2 PFSH: Medical History Echogenic intracardiac focus of fetus on ultrasound No pertinent past medical history neghx:htn,dm,thyroid,dvt/pe PCP: Aram Gibson History of prior with IUGR History of shoulder dystocia in prior Surgical History No history of previous surgery Family History Grandmother Clotting disorder maternal Diabetes maternal Hypertension maternal Breast cancer paternal, onset unknown Grandfather Clotting disorder maternal Denies family history of Colon cancer Ovarian cancer Heart disease Hyperlipidemia Anesthesia complication Bleeding disorder Uterine cancer Thyroid disease Stroke Social History Smoking and tobacco/nicotine status: unknown if used tobacco/nicotine Physical Exam 2 Const: COMMON NORMALS: alert HENMT: COMMON NORMALS: normocephalic HEAD & SCALP: normocephalic Neck/C-Spine: COMMON NORMALS: full ROM Resp: COMMON NORMALS: normal respiratory effort and clear to auscultation bilaterally AUSCULTATION: clear to auscultation bilaterally Cardio: COMMON NORMALS: regular rate and regular rhythm RATE: regular rate RHYTHM: regular rhythm GI: COMMON NORMALS: Soft to palpation PALPATION: Yes Soft to palpation, No Tenderness to palpation present (GI) and Yes Other GI palpation findings present (Negative Bass's) Back/Pelvis: COMMON NORMALS: thoracic and lumbar spine normal to inspection Extremity: COMMON NORMALS: full ROM Neuro: SENSORIUM/ORIENTATION: Yes alert Skin: COMMON NORMALS: turgor normal GENERAL SKIN EXAM: turgor normal Course 2 Vital Signs: Vital signs: Vital Signs Temperature 97.7 F 01/05/24 22:36 Pulse Rate 74 01/05/24 22:36 Respiratory Rate 17 01/05/24 22:36 Blood Pressure 107/69 01/05/24 22:36 Pulse Oximetry 99 01/05/24 22:36 Oxygen Delivery Me thod Room Air 01/05/24 22:36 MDM - Abdominal Pain Medical Decision Making Patient presents today with persistent abdominal pain for the last 3 to 4 weeks. Patient reports most of the pain has occurred since delivering her baby this last spring. On exam abdomen soft with a negative Bass sign. Patient believes that she might have gallbladder issues. Bowel sounds are present. No rebound tenderness. Review of the record noted the CT scan done on the that was unremarkable. Differential diagnosis includes dysfunctional gallbladder, GERD, gastritis, constipation, irritable bowel syndrome. CBC and CMP were unremarkable. Urinalysis had an increased number of white blood cells. I recommended patient take cephalexin 500 mg twice a day for the next 7 days. I also recommend patient follow back up with primary care for recheck of urine. I put in a case management for follow-up with surgery for further evaluation of abdominal pain and possible HIDA scan. Patient reports understanding and agreed with plan and need for follow-up. Lab Data 01/05/24 23:06 01/05/24 23:06 Labs/Radiology: Laboratory Results WBC 6.09 10^3/uL (3.29-11.43) 01/05/24 23:06 RBC 3.96 10^6/uL (3.85-5.65) 01/05/24 23:06 Hgb 12.20 g/dL (11.27-16.99) 01/05/24 23:06 Hct 36.6 % (36-47) 01/05/24 23:06 MCV 92.4 fl (85-98) 01/05/24 23:06 MCH 30.8 pg (27-33) 01/05/24 23:06 MCHC 33.3 g/dL (30-55) 01/05/24 23:06 RDW 14.4 % (12.1-15.1) 01/05/24 23:06 Plt Count 206 10^3/cmm (157-399) 01/05/24 23:06 MPV 10.3 fL (7.4-10.4) 01/05/24 23:06 Neut % (Auto) 50.5 % 01/05/24 23:06 Lymph % (Auto) 38.4 % 01/05/24 23:06 [place] % (Auto) 9.2 % 01/05/24 23:06 Eos % (Auto) 1.3 % 01/05/24 23:06 Baso % (Auto) 0.3 % 01/05/24 23:06 Neut # (Auto) 3.07 10^3/uL (1.8-7.7) 01/05/24 23:06 Lymph # (Auto) 2.3 10^3/uL (0.8-4.8) 01/05/24 23:06 [place] # (Auto) 0.6 10^3/uL (0.2-0.9) 01/05/24 23:06 Eos # (Auto) 0.1 10^3/uL (0.0-0.8) 01/05/24 23:06 Baso # (Auto) 0.0 10^3/uL (0.0-0.1) 01/05/24 23:06 Nucleated RBC % (auto) 0 % 01/05/24 23:06 Nucleated RBCs # 0.0 /100WBC 01/05/24 23:06 Sodium 138 mmol/L (136-145) 01/05/24 23:06 Potassium 3.7 mmol/L (3.5-5.1) 01/05/24 23:06 Chloride 102 mmol/L (98-107) 01/05/24 23:06 Carbon Dioxide 25 mmol/L (22-29) 01/05/24 23:06 Anion Gap 14.7 (5-19) 01/05/24 23:06 BUN 15 mg/dL (6-20) 01/05/24 23:06 Creatinine 0.8 mg/dL (0.5-0.9) 01/05/24 23:06 GFR Calculation 86.7 mL/min (90-130) L 01/05/24 23:06 Glucose 113 mg/dL (65-115) 01/05/24 23:06 Calculated Osmolality 288 mOsm/kg (285-295) 01/05/24 23:06 Calcium 9.5 mg/dL (8.5-10.5) 01/05/24 23:06 Total Bilirubin 0.3 mg/dL (0.15-1.2) 01/05/24 23:06 AST 28 U/L (0-32) 01/05/24 23:06 ALT 84 U/L (0-33) H 01/05/24 23:06 Alkaline Phosphatase 104 U/L (35-105) 01/05/24 23:06 Total Protein 6.7 g/dL (6.6-8.7) 01/05/24 23:06 Albumin 4.4 g/dL (3.5-5.2) 01/05/24 23:06 Globulin 2.3 g/dL (1.3-4.6) 01/05/24 23:06 Lipase 38 U/L (13-60) 01/05/24 23:06 HCG, Qual Negative (Negative) 01/05/24 23:06 Urine Color Yellow (Yellow) 01/05/24 23:02 Urine Appearance Cloudy (CLEAR) A 01/05/24 23:02 Urine pH 6.0 (5-7) 01/05/24 23:02 Ur Specific [place] 1.023 (1.005-1.030) 01/05/24 23:02 Urine Protein Negative (Negative) 01/05/24 23:02 Urine Glucose (UA) Negative (Normal) 01/05/24 23:02 Urine Ketones Negative (Negative) 01/05/24 23:02 Urine Blood Negative (Negative) 01/05/24 23:02 Urine Nitrate Negative (Negative) 01/05/24 23:02 Urine Bilirubin Negative (Negative) 01/05/24 23:02 Urine Urobilinogen 1.0 mg/dL (Negative) 01/05/24 23:02 Ur Leukocyte Esterase 1+ (Negative) A 01/05/24 23:02 Urine RBC 0-2 /hpf (0-2) 01/05/24 23:02 Urine WBC 21-50 /hpf (0-5) H 01/05/24 23:02 Ur Squamous Epith Cells 11-20 /hpf (0-5) 01/05/24 23:02 Amorphous Sediment Not Reportable 01/05/24 23:02 Urine Bacteria None seen /hpf (NONE) 01/05/24 23:02 Hyaline Casts 0.81 /lpf 01/05/24 23:02 No radiology studies performed this visit Discharge Plan Discharge Patient Disposition: Home Clinical Impression: UTI (urinary tract infection) Qualifiers: Urinary tract infection type: acute cystitis Hematuria presence: without hematuria Qualified Code(s): N30.00 - Acute cystitis without hematuria Abdominal pain Qualifiers: Abdominal location: right upper quadrant Qualified Code(s): R10.11 - Right upper quadrant pain Condition: Stable Prescriptions: New cephalexin 500 mg capsule 500 mg PO BID 7 Days Qty: 14 0RF No Action nitrofurantoin monohyd/m-cryst [Macrobid] 100 mg capsule 100 mg PO BID 5 Days Qty: 10 0RF Rx Instructions: must administer with a meal/food amoxicillin 875 mg tablet 875 mg PO BID 7 Days Qty: 14 0RF ondansetron 4 mg tablet,disintegrating 4 mg PO Q6H PRN (Reason: nausea and vomiting) Qty: 14 0RF Naprosyn 500 mg tablet 500 mg PO BID PRN (Reason: pain) Qty: 20 0RF Discharge Orders: Discharge ED (Routine); Ordered 01/05/24 Ordered By: Jaime Shukla Discharge Diet: Usual diet Discharge Activity: Increase activity as tolerated Patient Instructions: Abdominal Pain (ED) Activity Restrictions/Additional Instructions: Thank you for choosing [facility] for your healthcare needs today. Please realize that you were seen in the emergency department and that we are providing you with an emergency medical screening exam and this may not be a complete and all exclusive of all testing and/or medical workup we may need to determine your element or severity of your illness. It is very important that you follow-up as instructed with your primary care provider or specialist for the additional evaluation and to discuss your medical treatment plan. You may return to the emergency department should you have concerns or if your condition changes or worsens in any way. Coding Level of Care Code ED Explosive Operator for Shawn Parkinson
[2024-01-05 23:09] LABS: Charge for UA Resulting for Rev
[2024-01-05 23:10] LABS: Basophils % 0.3 %; Eosinophils # 0.1 10^3/uL (0.0-0.8); Eosinophils % 1.3 %; Hematocrit 36.6 % (36-47); Lymphocytes # 2.3 10^3/uL (0.8-4.8); Lymphocytes % 38.4 %; Mean Corpuscular HGB Conc 33.3 g/dL (30-55); Mean Corpuscular Hemoglobin 30.8 pg (27-33); Mean Corpuscular Volume 92.4 fl (85-98); Mean Platelet Volume 10.3 fL (7.4-10.4); Monocytes # 0.6 10^3/uL (0.2-0.9); Monocytes % 9.2 %; Neutrophils # 3.07 10^3/uL (1.8-7.7); Neutrophils % 50.5 %; Nucleated Red Blood Cells % 0 %; Platelet Count 206 10^3/cmm (157-399); Red Blood Count 3.96 10^6/uL (3.85-5.65); Red Cell Distribution Width 14.4 % (12.1-15.1); White Blood Count 6.09 10^3/uL (3.29-11.43)
[2024-01-05 23:11] LABS: Bilirubin Urine Negative (Negative); Blood Urine Negative (Negative); Glucose Urine UA Negative (Normal); Ketones Urine Negative (Negative); Leukocyte Esterase Urine 1+ (Negative); Nitrate Urine Negative (Negative); Protein Urine Negative (Negative); Specific Gravity, Urine 1.023 (1.005-1.030); Urine Appearance Cloudy (CLEAR); Urine Color Yellow (Yellow)
[2024-01-05 23:17] LABS: Bacteria Urine None Seen /hpf; Hyaline Casts Urine 0.81 /lpf; RBC Urine 0-2 /hpf (0-2); WBC Urine 21-50 /hpf (0-5)
[2024-01-05 23:18] LABS: Add Urine Culture? Yes
[2024-01-05 23:21] LABS: HCG, Serum Qual Negative (Negative)
[2024-01-05 23:31] LABS: Alanine Aminotransferase 84 U/L (0-33); Albumin Level 4.4 g/dL (3.5-5.2); Alkaline Phosphatase 104 U/L (35-105); Anion Gap 14.7 (5-19); Aspartate Amino Transferase 28 U/L (0-32); Blood Urea Nitrogen 15 mg/dL (6-20); Calcium 9.5 mg/dL (8.5-10.5); Carbon Dioxide 25 mmol/L (22-29); Chloride 102 mmol/L (98-107); Creatinine Clr Calc Pharmacy 118.3398; Globulin 2.3 g/dL (1.3-4.6); Glomerular Filtration Rate 86.7 mL/min (90-130); Glucose 113 mg/dL (65-115); Lipase 38 U/L (13-60); Osmolality Calculated 288 mOsm/kg (285-295); Potassium 3.7 mmol/L (3.5-5.1); Sodium 138 mmol/L (136-145); Total Bilirubin 0.3 mg/dL (0.15-1.2); Total Protein 6.7 g/dL (6.6-8.7)
[2024-01-05] MEDS: cephALEXin 500 mg Capsule PO (23:50)
--- NOTE | 2024-01-06 10:36 | DCPLANNER ---
faxed hida order to scheduling and messaged gen surg for er f/u
== END 2024-01-06 00:03 | disposition home or self-care (01) ==
PROVIDERS: Emergency Provider Nurse Practitioner Family
DX: N30.00 Acute cystitis without hematuria (principal); R10.11 Right upper quadrant pain
CPT/HCPCS: 36415; 80053; 81003; 81015; 83690; 84703; 85025; 87086; 99283

== ENCOUNTER → 2024-12-13 12:00 | Outpatient (BNVA) | payer OTHER, SELFPAY | PROVIDERS: Visit Provider Nurse Practitioner | DX: R39.9 Unspecified symptoms and signs involving the genitourinary system (principal) | CPT/HCPCS: 81000; 87086 ==

== ENCOUNTER → 2024-12-24 11:40 | Outpatient (BNVA) | payer OTHER, SELFPAY | DX: R39.9 Unspecified symptoms and signs involving the genitourinary system (principal) | CPT/HCPCS: 81000; 87086 ==

== ENCOUNTER → 2025-01-05 12:04 | Outpatient (BNVA) | payer OTHER, SELFPAY | DX: R39.9 Unspecified symptoms and signs involving the genitourinary system (principal) | CPT/HCPCS: 81000; 87086 ==